=== PATIENT | male | born 1980 | race Caucasian/White ===

== ENCOUNTER 2018-01-09 08:23 | Outpatient (CLI) | payer OTHER ==
--- NOTE | 2018-01-09 22:39 | MRI Report ---
EXAM: RIGHT SHOULDER MRI WITHOUT CONTRAST EXAM DATE: 01/09/2018 09:43 AM. CLINICAL HISTORY: Pain in right shoulder. COMPARISON: None. TECHNIQUE: Multiplanar, multisequence T1-weighted and fluid-sensitive sequences of the shoulder witho ut contrast. Other: None. FINDINGS: Acromioclavicular Region: The acromion is type II. Minimal degenerative change of the joint. The myron coacromial and coracoclavicular ligaments are intact. Minimal subacromial/subdeltoid bursal fluid. Glenohumeral Region: No subluxation. Minimal joint effusion. The articular cartilage is unremarkable. The glenohumeral ligaments and joint capsule are unremarkable. Bone Marrow: No fracture or bone lesion. Reactive cysts at the greater tuberosity. Labrum: Subtle linear focus of fluid sensitive hyperintense signal extends into the undersurface at t he posterior superior aspect. Musculature/Rotator Cuff: Shallow bursal surface fraying over the central fibers supraspinatus tendon at the level of the acromion. Subtle shallow partial-thickness intrasubstance tear at the insertion of the anterior and central fib ers infraspinatus tendon. This may extend to the bursal surface. Teres minor and subscapularis tendons are intact. No edema or fatty atrophy. Biceps Tendon: The long head of the biceps tendon and biceps olga lidia are intact. Other: The subcutaneous tissues are unremarkable. IMPRESSION: 1. Shallow bursal surface fraying supraspinatus tendon. 2. Subtle shallow partial-thickness intrasubstance tear infraspinatus tendon. This may extend to the bursal surface. 3. Focal partial-thickness undersurface tear versus vessel at the posterior-superior labrum. [facility] MUSCULOSKELETAL RADIOLOGY SECTION Referring Provider Line: [phone] SITE ID: [id number]
== END 2018-01-09 08:24 | disposition home or self-care (01) ==
LOC: DI 08:23
PROVIDERS: ATTEND Orthopaedic Surgery
DX: M25.511 Pain in right shoulder (principal); S46.811A Strain of other muscles, fascia and tendons at shoulder and upper arm level, right arm, initial encounter